=== PATIENT | female | born 1960 | race Hispanic/Latino ===

== ENCOUNTER 2020-09-07 09:44 | Emergency (ER) | payer OTHER, SELFPAY ==
[2020-09-07] MEDS ORDERED: Aspirin Chewable 81 MG TAB ONE (09:58)
[2020-09-07] MEDS ORDERED: Morphine 4 MG/ML VIAL ONE ×3 (09:58→14:04)
--- NOTE | 2020-09-07 10:14 | RAD ---
Exam: Chest one view HISTORY:Chest pain Comparison: 07/20/2018 FINDINGS: Cardiac silhouette: Normal Aorta: Unremarkable Pulmonary vessels: Normal Costophrenic angles: Clear LUNGS: No masses or consolidation. Pneumothorax: None Osseous abnormalities: None IMPRESSION: No acute cardiopulmonary process.
[2020-09-07 10:20] LABS: #Basophils 0.1 thou/uL (0.0-0.2); #Eosinphils 0.1 thou/uL (0.0-0.7); #Monocytes 0.4 thou/uL (0.11-0.59); #Neutrophils 4.9 thou/uL (1.40-6.50); %Basophils 1.1 % (0.0-1.0); %Eosinophils 1.2 % (0.0-10.0); %Lymphocytes 42.3 % (21.0-51.0); %Neutrophils 51.4 % (42.0-75.0); Hemoglobin 14.4 g/dL (12.0-16.0); Mean Corpuscular HGB CONC 33.7 g/dL (32.0-36.0); Mean Corpuscular Hemoglobin 26.5 pg (27.0-31.0); Mean Corpuscular Volume 78.7 fL (78.0-98.0); Mean Platelet Volume 7.7 fL (7.4-10.4); Platelet Count 328 thou/uL (130-400); RBC Distribution Width 11.5 % (11.5-14.5); Red Blood Cell (RBC) Count 5.42 mill/uL (4.20-5.40); White Blood Cell (WBC) Count 9.4 thou/uL (4.8-10.8)
[2020-09-07 10:34] LABS: ALT (SGPT) 18 U/L (8-55); AST (SGOT) 14 U/L (5-34); Albumin 4.4 g/dL (3.5-5.0); Alkaline Phosphatase 68 U/L (40-110); Anion Gap 18 mmol/L (10-20); BUN (Urea Nitrogen) 19 mg/dL (9.8-20.1); Bilirubin, Total 0.8 mg/dL (0.2-1.2); Calc. Creatinine Clearance 0 mL/min (70-130); Carbon Dioxide 24 mmol/L (22-29); Chloride 101 mmol/L (98-107); Estimated GFR-MDRD 71; Globulin 3.2 g/dL (2.4-3.5); Glucose 141 mg/dL (70-105); Potassium 3.7 mmol/L (3.5-5.1); Protein, Total 7.6 g/dL (6.0-8.3); Sodium 139 mmol/L (136-145)
[2020-09-07] MEDS ORDERED: Iopamidol 370 76% 125 ML VIAL FS ONE (10:57)
--- NOTE | 2020-09-07 12:16 | CT ---
EXAM: CT angiogram chest and abdomen with IV contrast and 3-D reconstructions HISTORY: Epigastric and lower chest pain. COMPARISON: None FINDINGS: The thoracic and abdominal aorta are normal in caliber without evidence of an aortic dissection. The visualized iliac arteries are patent. There is a common origin of the innominate artery and left common carotid artery. There is limited evaluation of the origins of the great vessels due to artifac t secondary to dense contrast in the left innominate vein. However, the great vessels do appear patent. The celiac, superior mesenteric, and inferior mesenteric arteries are patent. Incidentally noted is a replaced right hepatic artery. Single patent bilateral renal arteries are visualized. The heart is mildly enlarged. Mediastinal structures otherwise have a normal appearance. There is no evidence of lymphadenopathy. There are minimal scattered groundglass densities within the lungs bilaterally which is likely relate d to volume loss as this exam is obtained in expiratory phase of imaging. No discrete pulmonary nodule or mass is seen. There is no evidence of a pleural effusion. Postcholecystectomy changes are noted. The liver, spleen, pancreas, bilateral adrenal glands, and kid neys demonstrate a normal CT appearance for arterial phase of imaging. Loops of bowel are normal in caliber. A small fat-containing umbilical hernia is identified. Degenerative changes are seen scattered within the spine. IMPRESSION: 1. The thoracic and abdominal aorta are normal in caliber without evidence of an aortic dissection. 2. Mild cardiomegaly. 3. Postcholecystectomy changes. 4. No acute findings are seen in the chest or abdomen.
[2020-09-07] MEDS ORDERED: Ketorolac Tromethamine 30 MG/ML VIAL ONE (14:04)
== END 2020-09-07 14:44 | disposition home or self-care (01) ==
LOC: MADERS 09:44
DX: S23.3XXA Sprain of ligaments of thoracic spine, initial encounter (principal); R07.9 Chest pain, unspecified; K21.9 Gastro-esophageal reflux disease without esophagitis; I10 Essential (primary) hypertension; F32.9 Major depressive disorder, single episode, unspecified; X58.XXXA Exposure to other specified factors, initial encounter
CPT/HCPCS: 71045; 71275; 74174; 80053; 83880; 84484; 85025; 93005; 96374; 96376; J1885; J2270; Q9967